=== PATIENT | female | born 1970 | race Caucasian/White ===

== ENCOUNTER → 2022-07-05 | Outpatient (CLI) | payer OTHER | END | disposition home or self-care (01) | LOC: LAB 15:39 → LAB SHORT 15:39 | DX: N39.0 Urinary tract infection, site not specified (principal) | CPT/HCPCS: 87086 ==

== ENCOUNTER → 2022-07-28 | Outpatient (CLI) | payer OTHER ==
[2022-07-29 09:57] LABS: Candida species (DNA Probe) Negative (NEGATIVE); G. vaginalis (DNA Probe) Negative (NEGATIVE); T. vaginalis (DNA Probe) Negative (NEGATIVE)
== END | disposition home or self-care (01) ==
LOC: LAB SHORT 16:28 → LAB 16:28
PROVIDERS: Physician Assistant
DX: N76.0 Acute vaginitis (principal)
CPT/HCPCS: 87480; 87510; 87660

== ENCOUNTER → 2022-10-12 | Outpatient (CLI) | payer OTHER ==
[2022-10-12 10:17] LABS: Source, Urine Clean Catch
[2022-10-12 13:16] LABS: Appearance, Urine Turbid (Clear); Bilirubin, Urine Neg (Neg); Blood, Urine 5+ (Neg); Color, Urine Red (P-Yellow); Glucose Qualitative, Urine Neg (Neg); Ketones, Urine 1+ (Neg); Leukocyte Esterase, Urine 3+ (Neg); Nitrite, Urine Pos (Neg); Protein, Urine 4+ (Neg); Urobilinogen, Urine NORM (Normal)
[2022-10-12 13:35] LABS: Bacteria Many /hpf; Red Blood Cells, Urine TNTC /hpf (0-2); Squamous Epithelial Cells Few /hpf (Few); White Blood Cells, Urine 25-50 /hpf (0-5)
[2022-10-12 13:36] LABS: Granular Casts 0-2 /lpf (0); Hyaline Casts 0-2 /lpf (0-2)
== END | disposition home or self-care (01) ==
LOC: LAB SHORT 10:16 → LAB 10:16
PROVIDERS: Urology
DX: N39.0 Urinary tract infection, site not specified (principal)
CPT/HCPCS: 81001; 87086

== ENCOUNTER → 2022-10-29 | Outpatient (CLI) | payer OTHER ==
[~2022-10-29] MED LIST: ALBU90OI INH
[2022-11-09 13:12] LABS: BRUSHITE 2.13 ratio (0.00-3.00); CALCIUM OXALATE 9.27 ratio (0.00-6.00); CALCIUM, URINE 168.5 mg/24 hr (0.0-320.0); CALCIUM, URINE 33.7 mg/dL (Not Estab.); CHLORIDE URINE 46 (38-210); CITRIC ACID (CITRATE) 760 mg/L (Not Estab.); CITRIC ACID(CITRATE) 380 mg/24 hr (320-1240); CREATININE, URINE 175.9 mg/dL (Not Estab.); CREATININE, URINE 879.5 mg/24 hr (800.0-1800.0); MAGNESIUM, URINE 14.2 mg/dL (Not Estab.); MONOSODIUM URATE 3.28 ratio (0.00-4.00); OSMOLALITY, URINE 585 (300-900); SODIUM, URINE 42 (39-258); SODIUM, URINE 84 mmol/L (Not Estab.); STRUVITE 0.01 ratio (0.00-1.00); URIC ACID 6.12 ratio (0.00-1.20); URINE VOLUME 500 mL/24 hr (600-1600); URINE VOLUME (PRESERVATIVE) 500 mL/24 hr (600-1600)
== END ==
LOC: LAB 06:30 → LAB SHORT 06:30
PROVIDERS: Urology
DX: N20.0 Calculus of kidney (principal)
CPT/HCPCS: 81003; 82131; 82140; 82340; 82436; 82507; 82570; 83735; 83935; 83945; 84105; 84133; 84300; 84392; 84560

== ENCOUNTER → 2023-07-27 | Outpatient (CLI) | payer OTHER ==
[2023-07-28 11:48] LABS: Bacterial Vaginosis PCR Negative (NEGATIVE); Candida Group, PCR NOT DETECTED (NOT DETECT); Candida glabrata-krusei, PCR NOT DETECTED (NOT DETECT)
== END | disposition home or self-care (01) ==
LOC: LAB 18:17 → LAB SHORT 18:17
PROVIDERS: Physician Assistant
DX: N89.8 Other specified noninflammatory disorders of vagina (principal)
CPT/HCPCS: 87481; 87661; 87801

== ENCOUNTER 2023-10-18 10:47 | Emergency (ER) | payer OTHER ==
[~2023-10-18] VITALS: Ht 154.9 cm; Wt 56.7 kg
[2023-10-18 10:55] VITALS: BP 140/95
[2023-10-18] MEDS ORDERED: DONEPEZIL HCL10 M1 PO (10:57)
[2023-10-18] MEDS ORDERED: VARENICLINE TA1 EACH PO (10:58)
[2023-10-18] MEDS ORDERED: CORTISONE60 GM EXT ×2 (12:01→12:11)
== END 2023-10-18 12:12 | disposition home or self-care (01) ==
LOC: ER 10:47
DX: S40.862A Insect bite (nonvenomous) of left upper arm, initial encounter (principal); S40.861A Insect bite (nonvenomous) of right upper arm, initial encounter; S80.862A Insect bite (nonvenomous), left lower leg, initial encounter; S80.861A Insect bite (nonvenomous), right lower leg, initial encounter; F17.200 Nicotine dependence, unspecified, uncomplicated; Z79.899 Other long term (current) drug therapy
CPT/HCPCS: 99282

== ENCOUNTER 2023-11-16 23:22 | Emergency (ER) | payer OTHER ==
[~2023-11-16] VITALS: Ht 154.9 cm; Wt 54.4 kg
[~2023-11-16 23:22] MED LIST changes: +CORTISONE60 GM EXT; +DONEPEZIL HCL10 M1 PO; +VARENICLINE TA1 EACH PO
[2023-11-16 23:41] VITALS: BP 150/105
== END 2023-11-17 00:56 | disposition home or self-care (01) ==
LOC: ER 23:22
DX: S06.0X0A Concussion without loss of consciousness, initial encounter (principal); S00.03XA Contusion of scalp, initial encounter; F17.200 Nicotine dependence, unspecified, uncomplicated; W14.XXXA Fall from tree, initial encounter; Z79.899 Other long term (current) drug therapy
CPT/HCPCS: 99282

== ENCOUNTER → 2024-08-07 | Outpatient (CLI) | payer OTHER | LOC: LAB 09:32 → LAB SHORT 09:32 | DX: R10.9 Unspecified abdominal pain (principal) | CPT/HCPCS: 87086 ==

== ENCOUNTER → 2024-11-19 | Outpatient (CLI) | payer OTHER ==
[2024-11-19 17:40] LABS: Bacterial Vaginosis PCR Negative (NEGATIVE); Candida Group, PCR NOT DETECTED (NOT DETECT); Candida glabrata-krusei, PCR NOT DETECTED (NOT DETECT)
== END | disposition home or self-care (01) ==
LOC: LAB 12:17 → LAB SHORT 12:17
PROVIDERS: Physician Assistant
DX: Z01.419 Encounter for gynecological examination (general) (routine) without abnormal findings (principal); N88.8 Other specified noninflammatory disorders of cervix uteri
CPT/HCPCS: 81515; 87624; G0145